=== PATIENT | female | born 1970 | race Caucasian/White ===

== ENCOUNTER 2018-03-10 13:19 | Emergency (ER) | payer OTHER ==
[~2018-03-10] VITALS: Ht 170.2 cm; Wt 63.5 kg
[2018-03-10 14:34] VITALS: BP 132/79
[2018-03-10] MEDS ORDERED: PERCOCET 5-3251 EACH PO (14:37)
--- NOTE | 2018-03-10 14:39 | ED GENERAL ADULT ---
History of Present Illness General Chief Complaint: Sore Throat, Dental Pain Stated Complaint: DENTAL PAIN Source: patient Exam Limitations: no limitations Vital Signs & Intake/Output Vital Signs & Intake/Output Vital Signs Date Time Temp Pulse Resp B/P B/P Pulse O2 O2 Flow FiO2 Mean Ox Delivery Rate 03/10 1434 98.0 85 18 132/79 98 Room Air Allergies Coded Allergies: NO KNOWN ALLERGIES (01/08/12) Reconcile Medications Oxycodone HCl/Acetaminophen (Percocet 5-325 MG Tablet) 5 MG-325 MG TABLET 1 TAB PO Q4-6 PRN PRN PAIN Triage Note: 47F HAD DENTAL WORK DONE A WEEK AGO AT [place] WITH 1 EXTRACTION TO LEFT SIDE OF MOUTH AND IMPLANTS TO R MANDIBLE AND TAKING IBUPROFEN FOR PAIN WITHOUT RELIEF. PAIN 03/07 Triage Nurses Notes Reviewed? yes Onset: Gradual Duration: day(s): Timing: constant HPI: 47 y/o female with no known PMHx presenting with dental pain s/p tooth extraction to left upper mouth and dental implant to right lower mouth 5 days ago at [place]. Was sent home with ibuporfen and 5mg oxycodone for post op pain. States that she was sparingly using the oxycodone with good relief, but has since run out. Has continued ibuprofen without relief. Does not currently have f /u appt scheduled. Tried to call for appt, but her provider is on vacation and must wait until he is back. States her pain could not wait until then. Denies fevers or purulent drainage. (Aileen Neri) Past History Travel History Traveled to [place] past 21 day No Medical History Any Pertinent Medical History? none Surgical History Surgical History: non-contributory Psychosocial History What is your primary language Occitan Tobacco Use: Refused to answer Family History Hx Contributory? No (Aileen Neri) Review of Systems Review of Systems Constitutional: Reports: no symptoms. EENTM: Reports: see HPI. Respiratory: Reports: no symptoms. Cardiovascular: Reports: no symptoms. GI: Reports: no symptoms. Genitourinary: Reports: no symptoms. Musculoskeletal: Reports: no symptoms. Skin: Reports: no symptoms. Neurological/Psychological: Reports: no symptoms. Hematologic/Endocrine: Reports: no symptoms. Immunologic/Allergic: Reports: no symptoms. All Other Systems: Reviewed and Negative (Aileen Neri) Physical Exam Physical Exam General Appearance: well developed/nourished, no apparent distress, alert, awake Head: atraumatic, normal appearance Eyes: Bilateral: normal appearance. Ears, Nose, Throat: Surgical site to left upper oral cavity appears to be healing well, no bleeding, no purulent drainage, mild TTP, no gingival abscess. Surgical site to right lower oral cavity shows metal implant in place, no purulent drainage, no bleeding, no ginvigal abscess, mild TTP Neck: normal inspection Respiratory: normal breath sounds, lungs clear Cardiovascular: regular rate/rhythm Gastrointestinal: soft, non-tender Back: normal inspection Extremities: normal inspection Neurologic/Psych: awake, alert, oriented x 3, normal gait, normal mood/affect Skin: intact, normal color, warm/dry Core Measures ACS in differential dx? No CVA/TIA Diagnosis: No Sepsis Present: No Sepsis Focused Exam Completed? No (Aileen Neri) Progress Differential Diagnoses I considered the following diagnoses in my evaluation of the patient: [post op pain, low concern for post op infection vs charanjit's angina vs abscess] Plan of Care: Instructed to continue motrin. Given refill on oxycodone until she can be seen by her dentist at [facility]. Counseled on supportive care and strict return precautions. Initial ED EKG: none (Aileen Neri) Departure Departure Disposition: HOME OR SELF CARE Condition: Stable Clinical Impression Primary Impression: Pain, dental Referrals: Nadeem Mohan APRN Additional Instructions: Use ibuprofen as needed for pain. Use oxycodone as needed for breakthrough pain after first using ibuprofen. Follow up with your dentist for re-evaluation. Return to the emergency department for any new or worsening symptoms. Departure Forms: Customer Survey General Discharge Information Prescriptions: Current Visit Scripts Oxycodone HCl/Acetaminophen (Percocet 5-325 MG Tablet) 1 TAB PO Q4-6 PRN PRN PAIN #10 TAB (Aileen Neri) PA/PORCELAIN WAXER Co-Sign Statement Statement: ED Attending supervision documentation- I saw and evaluated the patient. I have also reviewed all the pertinent lab results and diagnostic results. I agree with the findings and the plan of care as documented in the PA's/PORCELAIN WAXER's documentation. x I have reviewed the ED Record and agree with the PA's/PORCELAIN WAXER's documentation. [] Additions or exceptions (if any) to the PAs/PORCELAIN WAXER's note and plan are summarized below: [] (Gilbert MEDINA,Luan) Critical Care Note Critical Care Note Critical Care Time: non-applicable (Brenna JENKINS,Aileen)
== END 2018-03-10 14:55 ==
LOC: ERH 13:19
DX: K08.89 Other specified disorders of teeth and supporting structures (principal)